=== PATIENT | female | born 1955 | race Caucasian/White ===

== ENCOUNTER 2017-07-26 08:14 | Day surgery (SDC) | payer OTHER ==
[~2017-07-26] VITALS: Ht 157.5 cm; Wt 77.7 kg
[~2017-07-26 08:14] MED LIST: ASPI81 PO; MULT-1203 PO
[2017-07-26] MEDS ORDERED: OMEP20 PO (08:37)
[2017-07-26] MEDS ORDERED: 0.9% SODIUM CHLORIDE 10 ML SYRINGE IVP PRN (09:00)
[2017-07-26] MEDS ORDERED: METOPROLOL TARTRATE 50 MG TABLET PO PRN (09:00)
[2017-07-26 09:01] LABS: ANION GAP 6 mmol/L (8-16); CALCIUM, TOTAL 8.8 mg/dL (8.8-10.5); CARBON DIOXIDE 28 mmol/L (22-29); CHLORIDE 106 mmol/L (98-107); CREATININE 0.71 mg/dL (0.60-1.30); GLOMERULAR FILTR. RATE CALC > 60 mL/min (>60); GLUCOSE,RANDOM 84 mg/dL (70-110); POTASSIUM 3.8 mmol/L (3.5-5.1); SODIUM SERUM 140 mmol/L (136-145); UREA NITROGEN, BLOOD 17 mg/dL (7-18)
[2017-07-26] MEDS ORDERED: IOVERSOL 350 MG/ML 150 ML VIAL ONE (10:08)
[2017-07-26] MEDS ORDERED: SODIUM CHLORIDE 0.9% 100 ML ONE (10:08)
[2017-07-26] MEDS ORDERED: NITROGLYCERIN 400 MCG/SUBLINGUAL SPRAY 4.9 GM BOTTLE SL ONE ×2 (10:16→10:28)
[2017-07-26] MEDS ORDERED: METOPROLOL TARTRATE 5 MG/5 ML VIAL ONE (10:16)
== END 2017-07-26 11:20 | disposition home or self-care (01) ==
LOC: SURGERY 08:14 → EDSTATUS 10:30 → SURGERY 11:20
PROVIDERS: ATTEND Internal Medicine Cardiovascular Disease
DX: I25.89 Other forms of chronic ischemic heart disease (principal); K44.9 Diaphragmatic hernia without obstruction or gangrene; K21.9 Gastro-esophageal reflux disease without esophagitis; I51.89 Other ill-defined heart diseases; M47.814 Spondylosis without myelopathy or radiculopathy, thoracic region; I49.8 Other specified cardiac arrhythmias; Z88.1 Allergy status to other antibiotic agents; Z90.49 Acquired absence of other specified parts of digestive tract; Z90.710 Acquired absence of both cervix and uterus; Z79.82 Long term (current) use of aspirin; Z98.890 Other specified postprocedural states; Z79.899 Other long term (current) drug therapy
CPT/HCPCS: 36415; 75574; 80048; 93005; J7050; Q9967; J3490